=== PATIENT | female | born 2000 | race Caucasian/White ===

== ENCOUNTER 2022-09-05 17:33 | Emergency (ER) | payer OTHER ==
[2022-09-05 18:40] VITALS: BP 122/80; PULSE 64; RESP 20; TEMP 97.7; BMI 31.6
[2022-09-05] MEDS ORDERED: METHOCARBAMOL 500 MG TABLET PO ONE (19:47)
[2022-09-05] MEDS ORDERED: KETOROLAC TROMETHAMINE 15 MG/ML VIAL IM ONE (19:47)
[2022-09-05] MEDS ORDERED: METHOCARBAMOL 500 MG TABLET ONE (19:54)
== END 2022-09-05 19:55 | disposition home or self-care (01) ==
LOC: JERFT 17:33 → JER 17:33 → JERFT 19:55
DX: M54.50 Low back pain, unspecified (principal)
CPT/HCPCS: 99283-25

== ENCOUNTER 2022-12-30 17:13 | Emergency (ER) | payer OTHER ==
[2022-12-30 17:24] VITALS: BP 121/79; PULSE 66; RESP 18; TEMP 97; BMI 31.6
[2022-12-30] MEDS ORDERED: ACETAMINOPHEN 1000 MG/100 ML BAG IVPB ONE (18:03)
[2022-12-30] MEDS ORDERED: ACETAMINOPHEN INJECTION 100 ML IVPB ONE (18:14)
[2022-12-30 18:43] LABS: BASO % 0.5 % (0-2.0); EOS % 0.5 % (0-4.5); HEMATOCRIT 35.4 % (32.4-45.2); LYMPH % 37.6 % (8-40); MCH 32.2 pg (25.7-33.7); MCHC 33.8 g/dl (32.0-36.0); MEAN CELL VOLUME 95.5 fl (80-96); MEAN PLT VOLUME 8.2 fl (7.5-11.1); MONO % 7.5 % (3.8-10.2); NEUT % 53.9 % (42.8-82.8); PLATELET COUNT 276 10^3/uL (134-434); RBC 3.71 M/mm3 (3.60-5.2); RDW 13.3 % (11.6-15.6); WHITE BLOOD COUNT 7.5 K/mm3 (4.0-10.0)
[2022-12-30 19:06] LABS: CALCIUM 8.9 mg/dL (8.5-10.1)
[2022-12-30 19:07] LABS: BLOOD UREA NITROGEN 12.9 mg/dL (7-18)
[2022-12-30 19:10] LABS: CREATININE 0.9 mg/dL (0.55-1.3)
[2022-12-30 19:11] LABS: TOT PROT 7.3 g/dl (6.4-8.2)
[2022-12-30 19:12] LABS: BILIRUBIN,TOTAL 0.3 mg/dL (0.2-1)
[2022-12-30] MEDS ORDERED: levETIRAcetam 500 MG/5 ML INJECTION VIAL IVPB ONE ×2 (20:07→20:08)
== END 2022-12-30 21:11 | disposition home or self-care (01) ==
LOC: JER 17:13
PROC: 3E033GC Introduction of Other Therapeutic Substance into Peripheral Vein, Percutaneous Approach (ICD-10-PCS; principal; 2022-12-30)
DX: R56.9 Unspecified convulsions (principal); S09.90XA Unspecified injury of head, initial encounter; W19.XXXA Unspecified fall, initial encounter
CPT/HCPCS: 0241U-QW; 36415; 70450-TC; 72125-TC; 80053; 83735; 84703; 85025; 93005; 93010; 99285-25